=== PATIENT | female | born 1985 | race Caucasian/White ===

== ENCOUNTER → 2016-08-05 10:25 | Outpatient (CLI) | payer MEDICAID ==
[2009-08-27 04:52] VITALS: BMI 27.0
== END | disposition home or self-care (01) ==
LOC: D.US 08-03 13:30
DX: N64.4 Mastodynia (principal)

== ENCOUNTER → 2018-12-25 09:57 | Outpatient (CLI) | payer BC, MEDICAID ==
[2009-08-27 04:52] VITALS: BMI 27.0
== END | disposition home or self-care (01) ==
LOC: D.US 09:57 → D.NM 11:30
PROVIDERS: ATTEND Internal Medicine Gastroenterology
DX: R11.0 Nausea (principal); R10.9 Unspecified abdominal pain

== ENCOUNTER → 2018-12-31 06:39 | Outpatient (CLI) | payer BC, MEDICAID ==
[2009-08-27 04:52] VITALS: BMI 27.0
== END | disposition home or self-care (01) ==
LOC: D.NM 12-28 07:00
PROVIDERS: ATTEND Internal Medicine Gastroenterology
DX: R11.0 Nausea (principal); R10.9 Unspecified abdominal pain

== ENCOUNTER → 2019-01-04 07:08 | Outpatient (CLI) | payer BC, MEDICAID ==
[2009-08-27 04:52] VITALS: BMI 27.0
== END | disposition home or self-care (01) ==
LOC: D.NM 07:08
PROVIDERS: ATTEND Internal Medicine Gastroenterology
DX: R11.0 Nausea (principal); R10.9 Unspecified abdominal pain

== ENCOUNTER → 2019-02-07 16:16 | Outpatient (CLI) | payer BC, MEDICAID ==
[2009-08-27 04:52] VITALS: BMI 27.0
[2019-02-07 16:44] LABS: BASOPHILS 0.2 % (0-2); EOSINOPHILS 4.7 % (0-7); HEMOGLOBIN 13.7 g/dL (12-16); IMMATURE GRANULOCYTES 0.2 % (0-5); LYMPHOCYTES 24.8 % (15-50); MCHC 35.1 g/dL (31.0-37.0); MCV 85.5 fL (80.0-100.0); MONOCYTES 6.1 % (2-11); RBC 4.56 10x6/uL (4.00-5.40); RDW 13.3 % (11.5-14.5); WBC 8.4 10x3/uL (4.8-10.8)
[2019-02-07 16:59] LABS: PLATELET COUNT 313 10x3/uL (130-400)
== END | disposition home or self-care (01) ==
LOC: D.LABREF 16:16
PROVIDERS: ATTEND Internal Medicine Pulmonary Disease
DX: J45.909 Unspecified asthma, uncomplicated (principal)

== ENCOUNTER 2019-02-28 09:40 | Outpatient (CLI) | payer BC ==
[2009-08-27 04:52] VITALS: BMI 27.0
== END 2019-02-28 12:00 | disposition home or self-care (01) ==
LOC: D.OPS 09:40
PROVIDERS: ATTEND Internal Medicine Gastroenterology
DX: K21.9 Gastro-esophageal reflux disease without esophagitis (principal)

== ENCOUNTER → 2019-03-20 09:29 | Outpatient (CLI) | payer BC, MEDICAID ==
[2009-08-27 04:52] VITALS: BMI 27.0
[2019-03-20 11:03] LABS: BASOPHILS 0.2 % (0-2); EOSINOPHILS 1.6 % (0-7); HEMATOCRIT 40.2 % (36.0-48.0); HEMOGLOBIN 13.7 g/dL (12-16); IMMATURE GRANULOCYTES 0.2 % (0-5); LYMPHOCYTES 9.8 % (15-50); MCH 29.7 pg (26.0-34.0); MCHC 34.1 g/dL (31.0-37.0); MEAN PLATELET VOLUME 9.9 fL (7.4-10.4); MONOCYTES 7.6 % (2-11); NEUTROPHILS 80.6 % (40-80); PLATELET COUNT 261 10x3/uL (130-400); RBC 4.62 10x6/uL (4.00-5.40); RDW 13.3 % (11.5-14.5)
== END | disposition home or self-care (01) ==
LOC: D.RT 09:29
PROVIDERS: ATTEND Internal Medicine Pulmonary Disease
DX: R06.00 Dyspnea, unspecified (principal)